=== PATIENT | male | born 1995 | race Caucasian/White ===

== ENCOUNTER 2017-12-22 21:52 | Emergency (ER) | payer SELFPAY ==
[2017-12-22 21:53] VITALS: BMI 27.4
[2017-12-22 21:59] VITALS: RESP 18
--- NOTE | 2017-12-22 22:12 | ED PDOC ---
HPI: Influenza Time Seen by Provider: 12/22/17 22:01 Chief Complaint: Flu-like Symptoms Chief Complaint (Provider): Fever, Sore Throat, Body Aches History Per: Patient Exam Limitations: no limitations Have you had recent travel within the past 21 days to any of: No Onset/Duration Of Symptoms: Hrs (since midnight) Symptoms include: fever, bodyaches, sore throat Sick Contacts (Context): None Additional complaint(s):: Patient is a 22 year old male who presents to ED for evaluation of tactile fever, sore throat, and bodyaches since midnight. Patient reports he took Advil 600mg PO at 5pm today. No other complaints at present. Patient denies: chills, ear pain, cough, SOB, abdominal pain, chest pain, travel, sick contacts, N/V/D, rash. PMD: None Past Medical History Reviewed: Historical Data, Nursing Documentation, Vital Signs Vital Signs: Last Vital Signs Temp 100.5 F H 12/22/17 21:56 Pulse 110 H 12/22/17 21:56 Resp 18 12/22/17 21:56 BP Pulse Ox 98 12/22/17 21:56 - Medical History PMH: No Chronic Diseases - Surgical History Surgical History: Appendectomy - Family History Family History: States: Unknown Family Hx - Social History Current smoker - smoking cessation education provided: No Alcohol: None Drugs: Denies - Home Medications Home Medications: Ambulatory Orders Medication Instructions Recorded Acetaminophen [Acetaminophen 8 650 mg PO Q8 PRN #21 tablet.er 12/22/17 Hour] Amoxicillin 875 mg PO BID #14 tab 12/22/17 Ibuprofen [Motrin Tab] 600 mg PO Q6 PRN #20 tab 12/22/17 - Allergies Allergies/Adverse Reactions: Allergies Allergy/AdvReac Type Severity Reaction Status Date / Time No Known Allergies Allergy Verified 01/09/17 18:23 Review of Systems ROS Statement: Except As Marked, All Systems Reviewed And Found Negative Constitutional: Positive for: Fever, Other (bodyaches) ENT: Positive for: Throat Pain Physical Exam - Reviewed Nursing Documentation Reviewed: Yes Vital Signs Reviewed: Yes - Physical Exam Appears: Positive for: Well, Non-toxic, No Acute Distress (Resting comfortably. ) Head Exam: Positive for: ATRAUMATIC, NORMOCEPHALIC Skin: Positive for: Normal Color, Warm, Dry Eye Exam: Positive for: EOMI, PERRL. Negative for: Periorbital swelling, Conjunctival injection ENT: Positive for: Pharynx Is (clear, uvula midline ), TM Is/Are (nonbulging, nonerythematous bilaterally), Pharyngeal Erythema, Tonsillar Exudate (bilaterally), Other (Mucus membranes moist. Airway patent, (-) stridor.). Negative for: Sinus Pain/Drainage, Nasal Congestion, Tonsillar Swelling Neck: Positive for: Painless ROM, Supple ((+) lymphadenopathy) Cardiovascular/Chest: Positive for: Regular Rate, Rhythm Respiratory: Positive for: Normal Breath Sounds Extremity: Positive for: Normal ROM. Negative for: Deformity Neurologic/Psych: Positive for: Alert, Oriented (x3), Mood/Affect (appropriate, calm), Gait (steady in ED). Negative for: Aphasia, Facial Droop Medical Decision Making Medical Decision Makin Initial Impression: pharyngitis/tonsillitis, fever Plan: -Tylenol 650mg PO -Amoxicillin 500mg PO -Influenza -Rapid Strep -Re-evaluation 5 Rapid Strep: positive Influenza: negative Repeat Temp: 100.7 oral Repeat HR: 100 Ibuprofen 600mg PO ordered. 2355 Additional 200mg Ibuprofen and 325mg PO Tylenol ordered for additional fever reduction as patient with 101.8 oral temp. Case discussed with Dr Amaya, who agrees to discharge at this time. Repeat HR: 95 On re-evaluation, patient reports improvement of symptoms. On exam, patient remains AAOx3, in no acute distress. Lungs clear to auscultation, cardiac RRR, repeat neuro exam shows no focal findings. Patient educated on antipyretic administration. Lab/Diagnostic results d/w the patient in great detail. Diagnosis of fever, pharyngitis/tonsillitis d/w the patient. Based on history, exam and diagnostic results, plan will be for outpatient follow up. Patient instructed to follow-up with pmd / referral provided / the clinic in 1- 2 days without fail. Advised to take medication as prescribed. Return to the emergency room at any time for any new or worsening symptoms. Patient states he fully agrees with and understands discharge instructions. States that he agrees with the plan and disposition. Verbalized and repeated discharge instructions and plan. I have given the patient opportunity to ask any additional questions. - ECG O2 Sat by Pulse Oximetry: 98 (RA) Pulse Ox Interpretation: Normal Disposition - Clinical Impression Clinical Impression: Fever, Tonsillitis with exudate, Strep pharyngitis - Patient ED Disposition Is Patient to be Admitted: No Counseled Patient/Family Regarding: Studies Performed, Diagnosis, Need For Followup, Rx Given - Disposition Referrals: [facility] [Outside] Disposition: Routine/Home Disposition Time: 23:55 Condition: STABLE Additional Instructions: The emergency medical care you received today was directed at your acute symptoms. If you were prescribed any medication, please fill it and take as directed. It may take several days for your symptoms to resolve. Return to the Emergency Department if your symptoms worsen, do not improve, or if you have any other problems. Please contact your doctor in 2 days for re-evaluation and follow up / or call one of the physicians/clinics you have been referred to that are listed on the P atient Visit Information form that is included in your discharge packet. Bring any paperwork you were given at discharge with you along with any medications you are taking to your follow up visit. Our treatment cannot replace ongoing medical care by a primary care provider (PCP) outside of the emergency department. Prescriptions: Acetaminophen [Acetaminophen 8 Hour] 650 mg PO Q8 PRN #21 tablet.er PRN Reason: Fever >100.4 F Amoxicillin 875 mg PO BID #14 tab Ibuprofen [Motrin Tab] 600 mg PO Q6 PRN #20 tab PRN Reason: fever/pain Instructions: Sore Throat in Adults, Strep Throat (DC), Fever, Adult (DC) Forms: [facility] (Slovenian) Print Language: ECUADOREAN - POA Present On Arrival: None Results - Lab Results Lab Results: 12/22/17 12/22/17 22:15 22:15 Influenza Typ A,B (EIA) Negative for flu a/b Grp A Beta Strep Ag Positive H
[2017-12-22 23:21] VITALS: O2SAT 98
[2017-12-22 23:50] VITALS: TEMP 101.8
[2017-12-22 23:59] VITALS: BP 132/79; PULSE 95
== END 2017-12-23 00:01 | disposition home or self-care (01) ==
LOC: H.ER 21:52
DX: R50.9 Fever, unspecified (principal); J03.90 Acute tonsillitis, unspecified; J02.0 Streptococcal pharyngitis